=== PATIENT | male | born 1965 | race Caucasian/White ===

== ENCOUNTER 2021-11-24 16:07 | Emergency (ER) | payer BC ==
[2021-11-24 17:14] LABS: CARBON DIOXIDE,CO2 26.3 mmol/L (21.0-32.0); POTASSIUM,K 3.6 mmol/L (3.5-5.1)
== END 2021-11-24 18:06 | disposition home or self-care (01) ==
LOC: MW.ED 16:07
DX: R07.89 Other chest pain (principal); I25.10 Atherosclerotic heart disease of native coronary artery without angina pectoris; E11.9 Type 2 diabetes mellitus without complications; F17.210 Nicotine dependence, cigarettes, uncomplicated; Z20.822 Contact with and (suspected) exposure to COVID-19
CPT/HCPCS: 36415; 71045; 71045-26; 80053; 84484; 85025; 93005; 93010; 99284; 99285; U0002